=== PATIENT | male | born 1990 | race Caucasian/White ===

== ENCOUNTER 2016-10-18 18:46 | Emergency (ER) | payer BC, OTHER ==
--- NOTE | 2016-10-18 19:08 | ED.PDOC ---
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 He is having pain and difficulty moving his left shoulder. no numbness, tingling or weakness. Occurred: just prior to arrival Severity: moderate Pain Location: back, upper extremity - L shoulder Method of Injury: direct blow Improving Factors: rest Worsening Factors: movement Loss of Consciousness: no loss of consciousness Associated Symptoms (Fall): denies symptoms Allergies/Adverse Reactions: Allergies Cephalexin [From Keflex] Allergy (Verified 10/18/16 19:19) Review of Systems - Review of Systems Constitutional: States: no symptoms reported EENTM: States: no symptoms reported Respiratory: States: no symptoms reported Cardiology: States: no symptoms reported Gastrointestinal/Abdominal: States: no symptoms reported Musculoskeletal: States: see HPI, back pain - L low back and lumbar spine, joint pain - Left shoulder, muscle pain - Left low back Skin: States: no symptoms reported Neurological: States: no symptoms reported. Denies: headache, numbness, paresthesia, tingling, weakness Endocrine: States: no symptoms reported Past Medical History (General) - Patient Medical History Hx Seizures: No Hx Stroke: No Hx Asthma: No Hx of COPD: No Hx Cardiac Disorders: No Hx Congestive Heart Failure: No Hx Pacemaker: No Hx Hypertension: Yes Hx Diabetes: No Hx MRSA: No - Vaccination History Hx Influenza Vaccination: No - Social History Hx Alcohol Use: No Hx Substance Use: No Hx Physical Abuse: No Hx Emotional Abuse: No Family Medical History - Family History Father Family History: Unknown Mother Living Status: Still Living Hx Family Hypertension: Yes Physical Exam - Physical Exam General Appearance: Alert, Comfortable, No apparent distress, Well Developed, Well Groomed, Well Hydrated, Well Nourished Head Injury: no evidence of injury ENT Exam: hearing grossly normal, no evidence of ENT injury Neck Exam: non-tender, full range of motion, normal alignment, normal inspection Cardiovascular/Respiratory: no respiratory distress Back Exam: muscle spasm, vertebral tenderness, other - Lumbar spine tenderness with abrasion, swelling and tenderness of L paraspinous muscles. Extremity Exam: pain with movement - L shoulder, very limited active and passive ROM due to pain., tenderness - L superior shoulder Neurologic: no motor/sensory deficits, alert, normal mood/affect, oriented x 3 Skin Exam: other - Abrasion L low back Progress - EKG/XRAY/CT XRAY: L-Spine: no fracture Xray Comments: L Shoulder: no fracture or dislocation Departure - Departure Clinical Impression: Contusion of shoulder, left, Sprain of shoulder Contusion of lower back Qualifiers: Encounter type: initial encounter Qualifier Code: (S30.0XXA) Contusion of lower back and pelvis, initial encounter Time of Disposition: 19:59 Disposition: Discharge to Home or Self Care Condition: Good Departure Forms: ED Discharge - Pt. Copy, Patient Portal Self Enrollment Instructions: Contusion, DI for Shoulder Pain Diet: resume usual diet Activity: increase activity as tolerated, no pushing/pulling with affected limb Referrals: Cosmo Harris III, MD [Primary Care Provider] - 1-5 Days Additional Instructions: Wear sling for 3-7 days Ice shoulder and back for 15-20 minutes 3-5X/day for 48 hours then add heat for 15-20 minutes 3-5X/days
--- NOTE | 2016-10-18 19:53 | RAD ---
EXAM DESCRIPTION: Shoulder,Left 2 or More Views CLINICAL HISTORY: Metal cart fell on back/shoulder pain COMPARISON: None FINDINGS: Two views of the left shoulder were submitted. There is no discrete acute fracture or dislocation. Bone mineralization is within normal limits. There is no radiopaque foreign body material IMPRESSION: No acute fracture or dislocation. Electronically signed by: Osvaldo Giron MD 10/18/2016 7:53 PM CDT
--- NOTE | 2016-10-18 19:56 | RAD ---
EXAM DESCRIPTION: Lumbar Spine 3 Views CLINICAL HISTORY: Metal cart fell on back/shoulder pain COMPARISON: None. FINDINGS: AP and lateral view of the lumbar spine, and coned view of the lumbosacral junction were submitted. There are five true lumbar vertebral bodies. The pedicles are within normal limits. There is no acute fracture or spondylolisthesis. IMPRESSION: No acute abnormalities. Electronically signed by: Osvaldo Giron MD 10/18/2016 7:56 PM CDT
[2016-10-18 20:12] VITALS: BP 137/79; TEMP 98; O2SAT 100
== END 2016-10-18 20:13 | disposition home or self-care (01) ==
LOC: ER 18:46
DX: S43.402A Unspecified sprain of left shoulder joint, initial encounter (principal); S30.0XXA Contusion of lower back and pelvis, initial encounter; I10 Essential (primary) hypertension; Z88.3 Allergy status to other anti-infective agents; W20.8XXA Other cause of strike by thrown, projected or falling object, initial encounter; Y99.0 Civilian activity done for income or pay

== ENCOUNTER → 2016-10-23 | Outpatient (CLI) | payer BC, OTHER | LOC: LAB.O 08:48 | PROVIDERS: ATTEND Family Medicine | DX: M25.50 Pain in unspecified joint (principal) ==

== ENCOUNTER → 2016-11-10 | Outpatient (CLI) | payer BC, OTHER ==
--- NOTE | 2016-11-11 10:50 | MRI ---
EXAM DESCRIPTION: Noncontrast MRI of the left shoulder CLINICAL HISTORY: Left shoulder pain COMPARISON: None TECHNIQUE: Multiplanar, multi sequence MRI images of the left shoulder were obtained without intra-articular contrast. FINDINGS: The rotator cuff is intact. Rotator cuff musculature demonstrates normal muscle bulk and signal characteristics. Long head of the biceps is well situated within the intertubercular groove. Biceps labral anchor is intact. Diminutive and blunted posterior inferior labrum. There is a markedly enlarged, lobulated Labral cyst emanating from the posterior glenoid rim extending into the quadrilateral space. This is amorphous and measures approximately 3.0 x 1.4 cm on coronal image 15. This extends into the quadrilateral space and may be compressing the axillary nerve, however there is no teres minor muscle atrophy or edema. This para labral cyst may be amenable to ultrasound-guided cyst aspiration and steroid injection. No significant degenerative changes of the acromioclavicular joint. No fluid seen within the subdeltoid/subacromial bursa. Type 2 acromion is noted. Glenohumeral joint cartilage is intact. No large joint effusion or loose body. Marrow signal is otherwise unremarkable without fracture or subluxation. IMPRESSION: 1. Large multilobulated para labral cyst extending from the posterior inferior labrum secondary to a nondisplaced labral tear. This extends into the quadrilateral space and abuts the axillary nerve, however there is no apparent denervation injury to the teres minor. This cyst may be amenable to ultrasound-guided cyst aspiration and steroid injection. 2. Intact rotator cuff. 3. Otherwise, unremarkable MRI of the left shoulder. Electronically signed by: Dawson Motta MD 11/11/2016 10:49 AM CDT
== END | disposition home or self-care (01) ==
LOC: MRI 08:04
PROVIDERS: ATTEND Family Medicine
DX: M25.812 Other specified joint disorders, left shoulder (principal)